=== PATIENT | female | born 1975 | race Caucasian/White ===

== ENCOUNTER 2018-03-08 17:58 | Emergency (ER) | payer MEDICAID ==
[~2018-03-08] VITALS: Ht 154.9 cm; Wt 84.0 kg
[2018-03-08 18:11] VITALS: Ht 154.9 cm; Wt 84.0 kg
[2018-03-08 19:50] VITALS: BP 164/87
== END 2018-03-08 19:50 | disposition home or self-care (01) ==
LOC: ED 17:58
DX: L60.0 Ingrowing nail (principal)

== ENCOUNTER 2018-10-21 14:52 | Emergency (ER) | payer MEDICAID ==
[~2018-10-21] VITALS: Ht 154.9 cm; Wt 90.3 kg
[2018-10-21 14:57] VITALS: Ht 154.9 cm; Wt 90.3 kg
[2018-10-21 18:58] VITALS: BP 116/70
== END 2018-10-21 19:41 | disposition home or self-care (01) ==
LOC: ED 14:52
DX: L60.0 Ingrowing nail (principal)

== ENCOUNTER 2019-04-09 17:07 | Emergency (ER) | payer MEDICAID ==
[~2019-04-09] VITALS: Ht 157.5 cm; Wt 89.8 kg
[2019-04-09 17:14] VITALS: Ht 157.5 cm; Wt 89.8 kg
[2019-04-09 22:14] VITALS: BP 124/75
== END 2019-04-09 22:14 | disposition home or self-care (01) ==
LOC: ED 17:07
DX: S61.112A Laceration without foreign body of left thumb with damage to nail, initial encounter (principal); W26.8XXA Contact with other sharp object(s), not elsewhere classified, initial encounter; Y93.89 Activity, other specified; Y92.89 Other specified places as the place of occurrence of the external cause; Y99.8 Other external cause status
CPT/HCPCS: 90715; J2001

== ENCOUNTER 2019-04-12 09:25 | Emergency (ER) | payer MEDICAID ==
[~2019-04-12] VITALS: Ht 152.4 cm; Wt 89.4 kg
[2019-04-12 09:31] VITALS: BP 119/49; Ht 152.4 cm; Wt 89.4 kg
== END 2019-04-12 10:36 | disposition home or self-care (01) ==
LOC: ED 09:25
DX: S61.012D Laceration without foreign body of left thumb without damage to nail, subsequent encounter (principal); X58.XXXD Exposure to other specified factors, subsequent encounter

== ENCOUNTER 2019-04-17 19:22 | Emergency (ER) | payer MEDICAID ==
[~2019-04-17] VITALS: Ht 154.9 cm; Wt 90.7 kg
[2019-04-17 19:28] VITALS: Ht 154.9 cm; Wt 90.7 kg
[2019-04-17 19:58] VITALS: BP 110/52
== END 2019-04-17 19:58 | disposition home or self-care (01) ==
LOC: ED 19:22
DX: S61.012D Laceration without foreign body of left thumb without damage to nail, subsequent encounter (principal); X58.XXXD Exposure to other specified factors, subsequent encounter

== ENCOUNTER 2019-11-21 08:54 | Emergency (ER) | payer MEDICAID ==
[~2019-11-21] VITALS: Ht 152.4 cm; Wt 92.1 kg
[2019-11-21 09:05] VITALS: Ht 152.4 cm; Wt 92.1 kg
[2019-11-21 10:50] VITALS: BP 119/78
== END 2019-11-21 10:55 | disposition home or self-care (01) ==
LOC: ED 08:54
DX: L60.0 Ingrowing nail (principal)
CPT/HCPCS: J2001